=== PATIENT | male | born 1945 | race Caucasian/White ===

== ENCOUNTER → 2017-07-24 07:24 | Outpatient (CLI) | payer MEDICARE, OTHER, SELFPAY ==
--- NOTE | 2017-07-24 | DI.US.S_ITS ---
PROCEDURE: US ABD AORTA ANEURYSM SCREEN INDICATIONS: HISTORY OF SMOKING TECHNIQUE: Real time scanning was performed of the aorta and iliac arteries, with image documentation. COMPARISON: None. FINDINGS: Aorta: Proximal aortic diameter measures 2.2 cm. Mid-aorta measures 1.7 cm. Distal aortic diameter is 1.6 cm. Iliac arteries: Right common iliac artery measures 1.1 cm. Left common iliac artery measures 1.2 cm. IMPRESSION: No aortic or iliac artery aneurysm or ectasia. Dictated by: Coco Wang M.D. on 07/24/2017 at 11:34 Approved by: Coco Wang M.D. on 07/24/2017 at 11:35
--- NOTE | 2017-07-24 | DI.MRI.S_ITS ---
PROCEDURE: MR LUMBAR SPINE WO CON INDICATIONS: LUMBAR PAIN TECHNIQUE: Noncontrast sagittal T1 spin echo and T2 fast echo, sagittal STIR, axial T1 and T2 fast spin echo through the lumbar spine. In cases with scoliosis, additional coronal T2 fast spin echo may be performed. COMPARISON: None. FINDINGS: Image quality: Excellent. Alignment and Curvature: There is mild grade 1 anterolisthesis at the L4-L5 level. Bone Marrow: Marrow is of normal overall signal. No acute vertebral body compression fractures. Spinal Cord: Conus medullaris terminates at the L1 level. Visualized cord demonstrates normal signal and size. Paraspinous Soft Tissues: No paravertebral masses. T12-L1: Normal appearance. L1-L2: The disc height and disk signal are well-preserved. Mild generalized disc bulge is seen. There is mild left-sided and no significant right-sided neural foraminal narrowing seen. No center canal narrowing is seen. L2-L3: The disc height and disk signal are well-preserved. Mild generalized disc bulge is seen. Itms-fa-eudlxchh facet hypertrophy is seen. Mild bilateral neural foraminal narrowing is seen. There is minimal central canal narrowing. L3-L4: The disc height is well-preserved. Loss of disc signal is seen at this level. Moderate generalized disc bulge is seen. Moderate facet joint hypertrophy is seen. Mild fluid can be seen within the facet joints themselves. There is moderate to severe right-sided neural foraminal narrowing seen, with a mild degree of impingement upon the exiting right L3 nerve root. Moderate left-sided neural foraminal narrowing is seen. Moderate central canal narrowing is seen. L4-L5: Mild to moderate loss of disc height and disc signal are seen. There is a Schmorl's node at the inferior endplate of L4, without acute features. Mild grade 1 anterolisthesis is seen at this level, without definite associated pars defects. At least moderate disc bulge is seen. Moderate to prominent facet hypertrophy is seen. Moderate to severe bilateral neural foraminal narrowing is seen, left worse than right. There is a degree of impingement seen upon the exiting nerve roots. Severe central canal narrowing is seen at this level, as on series 6 image 11. L5-S1: Mild to moderate loss of disc height and disc signal are seen. A moderate disc bulge is seen. Qbri-af-qonbthgu facet hypertrophy is seen at this level. Moderate to severe bilateral neural foraminal narrowing is seen. There is a degree of impingement seen upon the exiting nerve roots. No significant central canal narrowing is seen. IMPRESSION: Multiple levels of lumbar spine degenerative change are seen, which are most prominent inferiorly. Moderate to severe bilateral neural foraminal narrowing is seen at the L4-L5 and L5-S1 levels. Dictated by: Rio Jacinto M.D. on 07/24/2017 at 9:35 Approved by: Rio Jacinto M.D. on 07/24/2017 at 9:54
== END ==
PROVIDERS: Family Provider Family Medicine; PCP Family Medicine; Visit Provider Family Medicine
DX: M51.36 Other intervertebral disc degeneration, lumbar region (principal); M99.73 Connective tissue and disc stenosis of intervertebral foramina of lumbar region
CPT/HCPCS: 72148; 76706

== ENCOUNTER 2017-08-20 07:21 | Outpatient (CLI) | payer MEDICARE, OTHER, SELFPAY ==
--- NOTE | 2017-08-20 07:22 | DI.RAD.S_ITS ---
PROCEDURE: PAIN L/S TRANSFORAMINAL INJECT INDICATIONS: 71-year-old male undergoing right L4-L5 nerve root injection. FINDINGS: Fluoroscopic spot filming was performed to verify placement of spinal needles at the right L4-L5 level(s), as labeled on the films. Appropriate location(s) of the needle tip(s) was confirmed by injection of iodinated contrast. IMPRESSION: Fluoroscopic guidance for right L4-L5 nerve root injection. Dictated by: Freddy Gibson M.D. on 08/20/2017 at 9:27 Approved by: Freddy Gibson M.D. on 08/20/2017 at 9:28
[2017-08-20 07:56] VITALS: BP 161/76; PULSE 65; RESP 18; TEMP 35.9; O2SAT 98
--- NOTE | 2017-08-20 08:29 | P.PCN_ITS ---
Procedures Date/Time Date of procedure: 08/20/17 Time of procedure: 08:28 General Procedure description: PREOP DIAGNOSIS 1. FORMAINAL STENOSIS WITH LE SYMPTOMS POST OP DIAGNOSIS 1. FORMAINAL STENOSIS WITH LE SYMPTOMS PROCEDURES 1. FLUOROSCOPICALLY GUIDED CONTRAST CONTROLLED TRANSFORAMINAL EPIDURAL STEROID INJECTION - RIGHT L4/5 TFESI PHYSICIAN: Hany Cam DO INDICATIONS: Nichelle is referred by Dr. Solomon for treatment of Foraminal Stenosis with Right LE Symptoms FINDINGS Foraminal Nerve Root Compression secondary to disc disease and facet hypertrophy DESCRIPTION OF PROCEDURE: Following denial of allergy and review of potential side effects and complications, including, but not necessarily limited to, infection, allergic reaction, local tissue breakdown, stroke, temporary or permanent nerve injury, paralysis, and possible , the patient indicated that the patient understood and agreed to proceed. An informed consent document was signed by the patient, witnessed by a nurse, and placed in the patient's chart. Additionally, other treatment options including medications, modalities, and physical therapy were reviewed with the patient. Per the patient request, IV conscious sedation was administered via 2mg of Versed to patient comfort. The patient's vital signs were monitored throughout the procedure by both the nurse and the physician without significant fluctuation. The patient remained conversant throughout the procedure. In the prone position following sterile prep and drape of the lumbar region, the Right L4/5 posterior neuroforamen was identified fluoroscopically. The skin was anesthetized via a 25-gauge 1.5-inch needle with 1% lidocaine solution. At this point, a 25-gauge 3.5-inch spinal needle was atraumatically introduced and advanced under fluoroscopic guidance through the posterior Right L4/5 neuroforamen to approximately the anterior aspect of the canal. Depth was confirmed on lateral view. Following negative aspiration, injection of approximately 1.5 cc of Isovue 200 under live fluoroscopy in the AP view confirmed excellent flow along the nerve root, into the epidural space without vascular or intrathecal uptake observed Radiological data, including multiple fluoroscopic views of the lumbosacral spine, reveal a spinal needle at the right L4/5 posterior neuroforamen. Subsequent views show flow of contrast material flowing superiorly and inferiorly along the nerve root confirming epidural flow. Subsequently, a test dose of 1.5 cc of 1% lidocaine solution was administered and patient was observed for two minutes for signs or symptoms of complications , including abdominal pain, shortness of breath, bilateral upper or lower extremity weakness, nausea and vomiting, prior to steroid injection. At this point, a total of 3 cc or 20 mg of dexamethasone and 80mg Depo Medrol was injected without incident. The patient was then transferred to the recovery area where they were observed for an appropriate time after the injection. The patient reported a VAS score of 7 prior to the procedure and a post-procedure VAS of 0. Total Fluoroscopy Time: 20.9 seconds Total Conscious Sedation Time: 24min POST OP INSTRUCTIONS The patient was provided a Pain Log to continue to record their response to the target-specific procedure prior to follow-up visit with their referring physician. Additionally, specific post-injection care instructions and a contact number to our office were provided if concerns arise regarding possible complications associated with the procedure are suspected. Hany Cam DO Complications: none
[2017-08-20 08:30] VITALS: BP 150/78; PULSE 65; RESP 12; O2SAT 96
[2017-08-20] MEDS: IOPAMIDOL 15 ML VIAL 3 ML INJ (08:30)
[2017-08-20] MEDS: BUPIVACAINE 0.25% (PF) 30 ML VIAL INJ (08:30)
[2017-08-20] MEDS: methylPREDNISolone acetate 80 MG/ML VIAL INJ (08:30)
[2017-08-20] MEDS: DEXAMETHASONE 10 MG/ML VIAL 20 MG INJ (08:30)
[2017-08-20] MEDS: MIDAZOLAM 5 MG/5 ML VIAL IV (08:30)
[2017-08-20 08:35] VITALS: BP 134/104; PULSE 62; RESP 9; O2SAT 97
[2017-08-20 08:40] VITALS: BP 113/57; PULSE 63; RESP 9; O2SAT 97
[2017-08-20 08:45] VITALS: BP 123/86; PULSE 60; RESP 12; O2SAT 97
[2017-08-20 08:53] VITALS: BP 146/68; PULSE 65; RESP 16; O2SAT 99
== END 2017-08-20 10:00 | disposition home or self-care (01) ==
PROVIDERS: Family Provider Family Medicine; PCP Family Medicine; Referring Provider Family Medicine; Visit Provider Physical Medicine & Rehabilitation
DX: M54.17 Radiculopathy, lumbosacral region (principal); M99.83 Other biomechanical lesions of lumbar region; M48.061 Spinal stenosis, lumbar region without neurogenic claudication
CPT/HCPCS: 64483; J1040; J1100; J2250

== ENCOUNTER 2018-09-01 06:38 | Day surgery (SDC) | payer MEDICARE, OTHER, SELFPAY ==
[2018-08-19 12:08] VITALS: BMI 28.3
[2018-09-01] VITALS (9 sets, daily range): BP systolic 128–169; BP diastolic 59–73; PULSE 52–72; RESP 12–18; TEMP 36.2–36.7; O2SAT 88–99; BMI 27.8
--- NOTE | 2018-09-01 | PATH_ITS ---
[facility] Accession Number: [id number] . 01 Material submitted: . hernia - UMBILICAL HERNIA SAC AND CONTENTS . 02 Diagnosis: Specimen Designated Umbilical Hernia Sac and Contents: Soft tissue consistent with umbilical hernia sac, chronically inflamed, with associated benign adipose tissue. MRV/09/03/2018 . 02 Electronically signed: . Rodrigue Cisneros MD, Pathologist NPI- [id number] . 01 Gross description: . Received in formalin, labeled umbilical hernia sac + contents, is a piece of thmoas-rey membranous and fatty rubbery tissue (4.0 x 2.4 x 0.8 cm). Professor [employer] tissue submitted in cassette A1. ([id number]) /MRV . 02 Pathologist provided ICD-10: K42.9 . 02 CPT . 523523 Performed at: 01 [facility] [address], [place], [place] [id number] MD Rommel Monreal MD Phone: [phone] Performed at: 02 [facility] [address] [place], [place] [id number] MD Pricilla Palencia MD Phone: [phone]
--- NOTE | 2018-09-01 07:10 | PM.PREOP ---
Pre-operative Note Interval Note History & Physical reviewed/Exam performed by Physician: Yes Changes to H&P: No
[2018-09-01] MEDS: LACTATED RINGERS 1,000 ML 100 ML IV (07:34)
[2018-09-01] MEDS: CEFAZOLIN 2 GM/100 ML FROZ.PIGGY IV (07:45)
--- NOTE | 2018-09-01 08:03 | SUR.OPER ---
Supine on padded OR bed, head on pillow, arms secured on padded arm boards at <90 degrees abduction, legs uncrossed, safety belt at thigh, tape over blanket over lower legs.
[2018-09-01] MEDS: BUPIVACAINE 0.25% W/ EPI 30 ML VIAL INJ (08:11)
--- NOTE | 2018-09-01 08:40 | PM.OP.1 ---
Operative Date/Time/Diagnoses Date of procedure: 09/01/18 Time of procedure: 08:40 Pre-op diagnosis: Umbilical Hernia Post-op diagnosis: same Procedure & Clinicians Procedure: Umbilical Hernia Repair Same procedure as scheduled: Yes Indications: 72yo M with long standing umbilical hernia but recently it has been more symptomatic. He would like it repaired. All risks, benefits, and alternatives are discussed and patient wishes to proceed. Surgeon: Awa Tabler Click Yes if Unassisted: Yes Anesthesia Type: General Operative Notes Findings: Small fat-containing umbilical hernia; defect 1.5cm Closure Type: primary Specimen(s): other (hernia sac and contents) Procedure in detail: The patient was taken to the operating room and placed on the operating table in supine position then induced to an acceptable level of anesthesia. The abdomen was prepped and draped in usual sterile fashion. Using a 15 blade scalpel, an approximately 3 cm incision was made just below the umbilicus. This was taken down through the subcutaneous tissue using electrocautery. The hernia sac was identified. It was opened and the peritoneal cavity was identified as well. The hernia was opened widely and then transected along its attachments to the fascia. The fascial defect measured approximately 1.5cm. The posterior aspect of the fascia was cleaned circumferentially. And all omental adhesions were taken down. The anterior aspect of the fascia was then cleaned in all directions.As the fascial defect was less than 2cm, it was closed primarily using 0-ethibond sutures in an interrupted fashion. Repair was satisfactory and without tension. The fascia was then closed over the mesh using 0-Ethibond sutures. Subcutaneous tissues were irrigated and dried. Hemostasis was obtained using electrocautery. The umbilical stalk was tacked down to the level of the fascia using a 3-0 Vicryl suture. The deep subcutaneous tissues were closed using 3-0 Vicryl in an interrupted fashion. The skin was then closed using 4-0 monocryl in a running fashion. The abdomen was cleaned and dried. Steri strips and a pressure dressing were placed over the incision. The patient was awakened and taken to the postanesthesia care unit in stable condition. All counts were correct at the end of the procedure. Complications: none Condition: stable Disposition: PACU
[2018-09-01] MEDS: OXYCODONE/ACETAMINOPHEN 5/325 TABLET 1 TAB PO ×2 (09:34→10:00)
== END 2018-09-01 10:39 | disposition home or self-care (01) ==
PROVIDERS: Family Provider Family Medicine; PCP Family Medicine; Visit Provider Surgery
PROC: (CPT 49587; principal; 2018-09-01 07:45)
DX: K42.9 Umbilical hernia without obstruction or gangrene (principal); E11.9 Type 2 diabetes mellitus without complications; G47.30 Sleep apnea, unspecified; Z87.891 Personal history of nicotine dependence; E66.3 Overweight; Z68.28 Body mass index [BMI] 28.0-28.9, adult
CPT/HCPCS: 49587; 88302; J0690; J1100; J2250; J2405; J2704; J3010

== ENCOUNTER → 2018-10-05 13:28 | Outpatient (CLI) | payer MEDICARE, OTHER, SELFPAY ==
--- NOTE | 2018-10-05 | PATH_ITS ---
Note [facility] Accession Number: [id number] TESTS RESULT FLAG UNITS REF RANGE LAB Clinician Provided Cytology Information No. of containers..01 ThinPrep Vial No. of containers..10 Previously Prepared Cytology Slide R INGUINAL LYMPH NOD DIAGNOSIS: 02 RIGHT INGUINAL LYMPH NODE NEGATIVE FOR MALIGNANT CELLS. PLEASE SEE COMMENT. THIS INTERPRETATION INCLUDES EVALUATION OF A CELL BLOCK. COMMENT The prepared slides contain abundant small lymphocytes and rare macrophages. The cell block and cytospin slide contain only rare lymphocytes. No high grade malignant cells are identified. FNA cytology is not a sensitive test for low grade lymphoma. Flow cytometry, sometimes with followup morphologic correlation via excisional biopsy, is the preferred test if there is clinical concern for lymphoma. Pathologist ICD10: 02 R59.9 01 SPLENOMEGALY/RIGHT INGUINAL LYMPH NODE ENLARGEMENT 02 Pricilla Palencia MD, Pathologist NPI- [id number] Eleazar Samuel, Engineering And Operations Director ([facility]) 01 30 CC, COLORLESS, CLEAR RECEIVED: 5 ALCOHOL FIXED AND 5 QUICK STAINED SLIDES. /VDU FLAG LEGEND: L-Low Normal,H-High Normal,LL-Alert Low,HH-Alert High <-Panic Low,>-Panic High,A-Abnormal,AA-Critical Abnormal Performed at: 01 =Z [facility] [address] [place] [address], [place] [address] Rommel Monreal MD, 02 [facility] [address] [place] [id number] Pricilla Palencia MD, Performed at: 01 [facility] [address], [place], [place] [id number] MD Rommel Monreal MD Phone: [phone]
--- NOTE | 2018-10-05 | DI.US.S_ITS ---
PROCEDURE: US BIOPSY LYMPH NODE INDICATIONS: RIGHT INGUINAL LYMPH NODE ENLARGEMENT TECHNIQUE: The indications, alternatives, benefits, risks, and complications of the procedure were explained to the patient. Written informed consent was obtained and placed in the chart. Real-time sonography was utilized to choose the site for percutaneous lymph node sampling. The skin was prepped and draped in the usual sterile fashion. 1% lidocaine was infiltrated down to the site of interest. A coaxial needle was then advanced into the site of interest under direct sonographic visualization. A biopsy apparatus was then utilized, and core biopsies were obtained. The needle was then withdrawn; a bandage was applied to the biopsy site. COMPARISON: None. FINDINGS: Biopsy site(s): Right inguinal lymph node Needle: [employer] biopsy needle set. Number of passes: 6 Medications: 1% lidocaine for local anaesthesia. Complications: None. IMPRESSION: Successful ultrasound-guided right inguinal lymph node biopsy, with pathology results pending. Dictated by: Andie Weinberg M.D. on 10/05/2018 at 15:02 Approved by: Andie Weinberg M.D. on 10/05/2018 at 15:02
== END ==
PROVIDERS: PCP Student in an Organized Health Care Education/Training Program; Visit Provider Internal Medicine Gastroenterology
DX: R59.0 Localized enlarged lymph nodes (principal); R16.1 Splenomegaly, not elsewhere classified
CPT/HCPCS: 38505; 76942

== ENCOUNTER 2018-10-19 12:13 | Day surgery (SDC) | payer MEDICARE, OTHER, SELFPAY ==
[2018-10-15 12:12] VITALS: BMI 28.3
[2018-10-19] VITALS (7 sets, daily range): BP systolic 127–145; BP diastolic 58–73; PULSE 61–75; RESP 11–20; TEMP 36.2–36.8; O2SAT 95–99; BMI 27.8
--- NOTE | 2018-10-19 | PATH_ITS ---
[facility] Accession Number: [id number] . 01 Material submitted: . PART A: lymph node - RIGHT GROIN LYMPH NODE PART B: lymph node - RIGHT GROIN LYMPH NODE . 01 Diagnosis: A and B) RIGHT GROIN LYMPH NODE, EXCISIONAL BIOPSIES: . 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 01 Comment: The neoplastic B-cells in this case have uniform nuclear expression of cyclin D1, diagnostic of mantle cell lymphoma (MCL). The Qo-60-uzjxbjg proliferative rate among the neoplastic cells varies significantly, with large regions having a proliferative rate less than 5%, and multiple other foci having a proliferative rate up to 40%. A Xn-23-llbropy proliferative rate above 30% is considered an adverse prognostic factor in MCL. Note that the mantle cell lymphoma in this case is predominantly negative for CD5 expression, which occurs in about 10-15% of all MCL cases and currently does not have any known prognostic implication. This case also exhibits uniform coexpression of CD10, which has been well documented in a subset of mantle cell lymphomas, often in MCLs with a blastoid or pleomorphic morphology. This particular case of MCL is interesting for its uniform coexpression of CD10 and intermediate to large cell size; however, the morphology isn't particularly blastoid or pleomorphic, and as mentioned earlier, large regions of the lymphoma exhibit a distinctly low Qi-11-umsxkgu proliferative rate. The neoplastic cells are also negative for p53 overexpression by immunohistochemistry, which suggests this lymphoma does not harbor a TP53 mutation or deletion. In regard to treatment decisions for this patient, however, the presence of multifocal regions with a Lf-05-jyszpoe proliferative rate of 40% should be taken into consideration. . FLOW CYTOMETRY: Flow cytometric evaluation performed on a fresh portion of the right groin lymph node identified an abnormal kappa-restricted B-cell population of predominantly intermediate to large cell size, with expression of intermediate CD20, CD19, and CD10; intermediate-high CD22; high-level CD38; and low FMC7; without definitive coexpression of CD5, and without expression of CD11c, CD23, or CD103 ([phone]). . REFERENCE: Kaia SH, et al. WHO Classification of Tumours of Haematopoietic and Lymphoid Tissues. Revised 4th Ed., [employer], [place], 2017, pp [phone]. . 01 Electronically signed: . Yarely Dumas MD, Pathologist NPI- [id number] . 01 Gross description: . (A) Received in B Plus Fix, labeled right groin lymph node, is a piece of lymph node (1.4 x 0.8 x 0.8 cm). Serially sectioned and entirely submitted in cassettes A1-A2. (B) Received in formalin, labeled right groin lymph node, is a lymph node in multiple pieces (3.4 x 2.4 x 1.3 cm in aggregate). Serially sectioned and entirely submitted in cassettes B1-B7. . Note: Per the requisition, this is a split sample with wet and dry slides submitted and tissue sent to flow cytometry for analysis. ([id number]) /MRV . 01 Microscopic: . H/E-stained sections of A1-A2 and B1-B7 reveal cross sections of an excisional biopsy of a moderately-enlarged lymph node with essentially complete architectural effacement by an atypical lymphoid infiltrate with a diffuse histologic pattern. In a few foci, vague nodularity is noted; however, this is favored to reflect the underlying nodularity of the lymph node itself. No distinct residual primary or secondary follicles are identified. The atypical lymphoid population appears predominantly intermediate to large in size, with moderately convoluted nuclei, variably-condensed chromatin and occasional nucleoli. The atypical cells exhibit a vague molding pattern with adjacent cells. The atypical infiltrate extends through the mando capsule, and mildly into the surrounding adipose tissue. Mitotic figures are easily identified in some areas and at least one focus of incipient necrosis is present. In scattered regions, there is increased stromal hyalinization and thickened vessel arnold. Small calcifications are also seen in some areas of the stromal hyalinization. Trichrome and Congo red special stains indicate the stromal hyalinization represents collagen, and not deposition of amyloid. . Select immunohistochemical studies* were performed on block B7 for further evaluation of the atypical infiltrate, with accompanying positive and negative controls. The vast majority of lymphocytes are abnormal B-cells with uniform coexpression of Pax5, CD10, bcl-2, CD43, and nuclear cyclin D1, and focal weak expression of CD5. A small subset of CD3+/CD5+ T-cells is present in the background. The abnormal B-cell population does not exhibit convincing coexpression of bcl-6. The Bs-56-pphfssi proliferative rate among the abnormal B-cells varies significantly, with large regions having a Lg-54-wnbnmmu proliferative rate less than 5%, and multiple other foci having a Dv-84-retalrz proliferative rate up to 40%. The abnormal cells are negative for p53 overexpression by immunohistochemistry. An immunostain for CD21 highlights many expanded [facility] meshworks in the background of the tissue. . * Technical note: These tests and their performance characteristics have been determined by [facility]. They have not been cleared or approved by the U.S. Food and Drug Administration. The FDA has determined that such clearance or approval is not necessary. These tests are used for clinical purposes, and should not be regarded as investigational or for research. . 01 Pathologist provided ICD-10: C83.15 . 01 CPT . 895272, 111689, 449969, R08872, N02424 Performed at: 01 [facility] [address] [place] [address] [address], [place], [place] [id number] MD Rommel Monreal MD Phone: [phone]
[2018-10-19] MEDS: LACTATED RINGERS 1,000 ML 42 ML IV ×2 (13:30→15:33)
--- NOTE | 2018-10-19 14:43 | PM.PREOP ---
Pre-operative Note Interval Note History & Physical reviewed/Exam performed by Physician: Yes Changes to H&P: No H&P completed within 30 days and has changed as indicated here:: See recent office visit for history and physical
[2018-10-19] MEDS: CEFAZOLIN 2 GM/100 ML FROZ.PIGGY IV (14:52)
--- NOTE | 2018-10-19 15:27 | SUR.OPER ---
Supine on padded OR bed, head on pillow, arms secured on padded arm boards at <90 degrees abduction, legs uncrossed, safety belt at thigh, tape over blanket over lower legs.
[2018-10-19] MEDS: BUPIVACAINE 0.5% (PF) VIAL 30 ML INJ (15:34)
--- NOTE | 2018-10-19 16:22 | P.OP_ITS ---
Operative Date/Time/Diagnoses Date of procedure: 10/19/18 Time of procedure: 16:19 Pre-op diagnosis: Diffuse lymphadenopathy with enlarged spleen suggestive of lymphoma Post-op diagnosis: same Procedure & Clinicians Procedure: Lymph node biopsy right groin Same procedure as scheduled: Yes Indications: Diagnostic Surgeon: Errol Cook Click Yes if Unassisted: Yes Anesthesia Type: General Operative Notes Findings: Enlarged matted nodes right groin Closure Type: primary Specimen(s): other (Node in multiple materials and slides.) Prosthetic devices, grafts, tissues, transplants, or devices: None Estimated Blood Loss (mL): 5 Blood products transfused: none Procedure in detail: Patient was placed supine on the operating room table and underwent general LMA anesthesia. He was prepped and draped in the usual fashion overlying the lymphadenopathy in the right groin. Local anesthetic was infiltrated and incision made directly over palpable nodes. Dissection was carried down the level the nodes. All tissues going to and from the lymph node that I chose to remove were tied or sutured with 3 0 Vicryl. The node was released and wet and dry preps were made with slides. Flow cytometry material w as prepared in formalin as well. Closure was a 3 0 Vicryl in the fat and deeper tissues. The skin was closed with interrupted 3 0 nylon vertical mattress suture. Dressing was applied the patient was awakened taken recovery room good condition. Complications: none Condition: stable Disposition: PACU
[2018-10-19] MEDS: KETOROLAC 30 MG/ML VIAL IV (16:43)
== END 2018-10-19 17:16 | disposition home or self-care (01) ==
PROVIDERS: PCP Student in an Organized Health Care Education/Training Program; Visit Provider Specialist
PROC: (CPT 38500; principal; 2018-10-19 13:30)
DX: C83.15 Mantle cell lymphoma, lymph nodes of inguinal region and lower limb (principal); R16.1 Splenomegaly, not elsewhere classified; E11.9 Type 2 diabetes mellitus without complications; I10 Essential (primary) hypertension; G47.33 Obstructive sleep apnea (adult) (pediatric); K21.9 Gastro-esophageal reflux disease without esophagitis; E78.5 Hyperlipidemia, unspecified; Z79.4 Long term (current) use of insulin
CPT/HCPCS: 38500; 88307; 88313; 88341; 88342; J0690; J1885; J2405; J2704; J3010

== ENCOUNTER → 2019-01-28 17:53 | Outpatient (CLI) | payer MEDICARE, OTHER, SELFPAY ==
--- NOTE | 2019-01-28 18:07 | DI.RAD.S_ITS ---
PROCEDURE: XR ELBOW RT MIN 3V INDICATIONS: RIGHT ELBOW ABCESS TECHNIQUE: 3 views of the elbow were acquired. COMPARISON: None. FINDINGS: Bones: No fractures or dislocations. No suspicious bony lesions. Prominent enthesophyte formation in proximal olecranon in near triceps tendon insertion is seen. Soft tissues: Dorsal soft tissue swelling over olecranon is seen. No elbow joint effusion. Tiny radiodensity adjacent to anterior and radial aspect of lateral humeral condyle is seen, may represent tiny foreign body. IMPRESSION: Soft tissue swelling over dorsal aspect of olecranon, which could indicate olecranon bursitis. No fracture or dislocation. No bony erosive changes. Possible foreign body in anterior lateral elbow soft tissue. Dictated by: Cody Troy M.D. on 01/29/2019 at 9:43 Approved by: Cody Troy M.D. on 01/29/2019 at 9:54
[2019-01-28 20:03] LABS: Prostate Specific Antigen 1.85 ng/mL (0.10-4.00)
[2019-01-28 20:04] LABS: Add Manual Diff / Slide Review NO; Basophils Percent Auto 0.1 % (0-2); Eosinophils Percent Auto 1.6 % (2-4); Hematocrit 36.4 % (41-53); Hemoglobin 12.7 g/dL (13.5-17.5); Lymphocytes Absolute Auto 100 /uL (1100-4500); Lymphocytes Percent Auto 1.1 % (25-40); Mean Corpuscular HGB Conc 34.9 % (30-36); Mean Corpuscular Hemoglobin 33.1 PG (26-34); Mean Corpuscular Volume 94.8 fL (80-100); Monocytes Absolute Auto 400 /uL (0-900); Monocytes Percent Auto 4.9 % (3-14); Neutrophils Absolute Auto 8100 /uL (1500-7000); Neutrophils Percent Auto 92.3 % (50-75); Platelet Count 184 X10^3/uL (150-400); Red Blood Cell Count 3.84 X10^6/uL (4.5-5.9); Red Cell Distribution Width 16.6 % (11.6-14.8); White Blood Cell Count 8.8 X10^3/uL (4.5-11.0)
[2019-01-28 20:05] LABS: Basophils Absolute Auto 0 /uL (0-100); Eosinophils Absolute Auto 100 /uL (0-450)
== END ==
PROVIDERS: PCP Student in an Organized Health Care Education/Training Program; Visit Provider Student in an Organized Health Care Education/Training Program
DX: M71.021 Abscess of bursa, right elbow (principal); R35.0 Frequency of micturition; M79.89 Other specified soft tissue disorders
CPT/HCPCS: 73080; 84153; 85025; 87070; 87075; 87205

== ENCOUNTER 2019-03-01 13:06 | Emergency (ER) | payer MEDICARE, OTHER, SELFPAY ==
[2019-03-01 13:15] VITALS: BP 103/87; PULSE 84; RESP 14; TEMP 36.7; O2SAT 99; BMI 26.5
[2019-03-01 13:20] VITALS: PULSE 80
--- NOTE | 2019-03-01 13:46 | DI.RAD.S_ITS ---
PROCEDURE: XR ELBOW LT MIN 3V INDICATIONS: swelling, ? bursitis TECHNIQUE: 3 views of the elbow were acquired. COMPARISON: None. FINDINGS: Bones: No fractures or dislocations. No suspicious bony lesions. There are mild degenerative changes of the left elbow joint. There is a calcified enthesophyte along the left elbow posteriorly, adjacent the olecranon. Soft tissues: There is posterior left elbow soft tissue edema overlying the olecranon posteriorly. IMPRESSION: Posterior left elbow soft tissue edema overlying the left olecranon. No convincing acute fracture or dislocation of the left elbow identified radiographically. Consider followup radiographs in 7-10 days versus MRI if there is continued clinical concern. Dictated by: Mark Mendoza M.D. on 03/01/2019 at 14:12 Approved by: Mark Mendoza M.D. on 03/01/2019 at 14:16
[2019-03-01 14:00] VITALS: BP 105/65; PULSE 74; RESP 96
[2019-03-01 15:04] VITALS: BP 136/71; PULSE 71; RESP 22; O2SAT 97
--- NOTE | 2019-03-01 16:05 | ED.EXTPRO ---
HPI - Extremity Problem <Nesha MorseSAM-BC - Last Filed: 03/01/19 16:12> General Chief complaint: Extremity Problem,Nontraumatic Stated complaint: swollen left elbow Time Seen by Provider: 03/01/19 13:26 Source: patient Mode of arrival: Ambulatory Limitations: no limitations History of Present Illness HPI Narrative: The patient is a 73 year old male former smoker with history lymphoma who presents with a chief complaint of a swollen left elbow. He states he had something similar to his right elbow in the last month, but it was red and draining pus. He states that he received multiple antibiotics as well as a drainage of this elbow. He denies any fevers nausea vomiting diarrhea. He states he has full range of motion of his elbow. He states the swelling started yesterday. He was concerned about redness at home, but states that went away. Related Data Home Medications Medication Instructions Recorded Confirmed losartan-hydrochlorothiazide 1 tab PO DAILY #0 04/04/17 03/01/19 [Hyzaar] rosuvastatin [Crestor] 5 mg PO DAILY #0 04/04/17 03/01/19 coenzyme Q10 100 mg capsule 100 mg PO DAILY 09/19/17 12/14/18 insulin glargine 100 unit/mL 5 unit SUBCUT DAILY #0 ml 07/09/18 12/14/18 subcutaneous solution omega 9-ibk-bhl-fish oil 1,000 mg 1 cap PO DAILY cap 07/09/18 12/14/18 (120 mg-180 mg) capsule gabapentin 300 - 600 mg PO BEDTIME 08/25/18 03/01/19 ketoconazole 1 applic TOPICAL DAILY 08/25/18 12/14/18 venlafaxine 37.5 mg 75 mg PO DAILY 10/13/18 12/14/18 capsule,extended release 24 hr Resmed Airsense 10 CPAP #1 ea 12/14/18 03/01/19 acyclovir 400 mg PO BID 03/01/19 03/01/19 glipizide 10 mg PO BID 03/01/19 03/01/19 metformin 1,000 mg PO BID 03/01/19 03/01/19 Previous Rx's Medication Instructions Recorded ibuprofen 600 mg PO Q6H PRN #20 tab 10/19/18 ketorolac 10 mg PO TID PRN #15 tab 03/01/19 Allergies Allergy/AdvReac Type Severity Reaction Status Date / Time codeine [CODEINE] Allergy Severe PASSES OUT Verified 12/14/18 11:35 hydrocodone AdvReac Severe bradycardia, Verified 12/14/18 11:35 unable to waken oxycodone AdvReac Severe Bradycardia, Verified 12/14/18 11:35 unable to waken morphine AdvReac Unknown went into Verified 12/14/18 11:35 shock Review of Systems <ANDREW Butler - Last Filed: 03/01/19 16:12> Review of Systems Narrative: GENERAL: Denies chills, fatigue, malaise, fever, sweats. HEENT: Denies sinus pain, ear pain, sore throat, difficulty swallowing, dizziness. RESPIRATORY: Denies dyspnea, cough, wheezing, hemoptysis, sputum. CARDIOVASCULAR: Denies chest pain, palpitations, orthopnea, edema, GASTROINTESTINAL: Denies nausea, vomiting, abdominal pain, diarrhea, constipation, melena. : Denies dysuria, frequency, incontinence, hematuria, urinary retention. MUSCULOSKELETAL: See HPI SKIN: See HPI NEUROLOGIC: Denies weakness, headache, numbness, change in speech, confusion, seizures, incoordination. PSYCHIATRIC: No concerning psychosocial issues. 12 point review of systems is negative except for those stated above Patient History <ANDREW Butler - Last Filed: 03/01/19 16:12> Medical History Arthritis (Acute) Bilateral ankle pain (Acute) Diabetes (Acute) Diverticulosis (Acute) GERD (gastroesophageal reflux disease) (Acute) High blood sugar (Acute) HLD (hyperlipidemia) (Acute) HTN (hypertension) (Acute) Low blood sugar (Acute) Neuropathy (Acute) Peripheral neuropathy (Acute) PTSD (post-traumatic stress disorder) (Acute) Surgical History History of ankle surgery (Acute ~07/1985) Hx of umbilical hernia repair (Acute 09/01/18) Social History household members: spouse Smoking Status: Former smoker alcohol intake: current additional social history: Patient has disability status from the regarding his sleep apnea. Smoking Status: Former smoker alcohol intake frequency: 0-2 drinks per day Substance Use Type: does not use Exam <ANDREW Butler - Last Filed: 03/01/19 16:12> Narrative Exam Narrative: GENERAL: This is a well-nourished, well-developed patient, in no acute distress HEAD: Atraumatic. Normocephalic. No temporal or scalp tenderness. EYES: Pupils equal round and reactive. Extraocular motions intact. No scleral icterus. No injection or drainage. ENT: Nose without bleeding, purulent drainage or septal hematoma. Throat without erythema, tonsillar hypertrophy or exudate. Uvula midline. Airway patent. NECK: Trachea midline. No JVD or lymphadenopathy. Supple, nontender, no meningeal signs. CARDIOVASCULAR: Regular rate and rhythm RESPIRATORY: No cough. No increased respiratory effort. No accessory muscle use. EXTREMITIES: Soft tissue swelling noted on olecranon of left elbow. No overlying edema. No drainage. Full range of motion noted left elbow. Positive radial pulse. BACK: Nontender without deformity or crepitance. No flank tenderness. NEURO: AOx3. SKIN: No rash, erythema ecchymosis laceration or abrasion noted over left elbow Initial Vital Signs Initial Vital Signs: Vital Signs Temperature 98.0 F 03/01/19 13:15 Pulse Rate 84 03/01/19 13:15 Respiratory Rate 14 03/01/19 13:15 Blood Pressure 103/87 03/01/19 13:15 Pulse Oximetry 99 03/01/19 13:15 <Lety Velazquez DO - Last Filed: 03/03/19 07:11> Initial Vital Signs Initial Vital Signs: Vital Signs Temperature 98.0 F 03/01/19 13:15 Pulse Rate 84 03/01/19 13:15 Respiratory Rate 14 03/01/19 13:15 Blood Pressure 103/87 03/01/19 13:15 Pulse Oximetry 99 03/01/19 13:15 Course <ANDREW Butler - Last Filed: 03/01/19 16:12> Orders Ordered: ED Orders 03/01/19 13:46 XR elbow LT min 3V Stat Vital Signs Vital signs: Vital Signs - 8 hr 03/01/19 13:15 03/01/19 13:20 03/01/19 14:00 Temperature 98.0 F Pulse Rate 84 74 Pulse Rate [Left Radial] 80 Respiratory Rate 14 96 H Blood Pressure 103/87 Blood Pressure [Right Arm] 105/65 Pulse Oximetry 99 03/01/19 15:04 Temperature Pulse Rate 71 Pulse Rate [Left Radial] Respiratory Rate 22 Blood Pressure Blood Pressure [Right Arm] 136/71 Pulse Oximetry 97 <Lety Velazquez DO - Last Filed: 03/03/19 07:11> Orders Ordered: ED Orders 03/01/19 13:46 XR elbow LT min 3V Stat Vital Signs Vital signs: Vital Signs - 8 hr 03/01/19 13:15 03/01/19 13:20 03/01/19 14:00 Temperature 98.0 F Pulse Rate 84 74 Pulse Rate [Left Radial] 80 Respiratory Rate 14 96 H Blood Pressure 103/87 Blood Pressure [Right Arm] 105/65 Pulse Oximetry 99 03/01/19 15:04 Temperature Pulse Rate 71 Pulse Rate [Left Radial] Respiratory Rate 22 Blood Pressure Blood Pressure [Right Arm] 136/71 Pulse Oximetry 97 MDM - Extremity (Nontraumatic) <ANDREW Butler - Last Filed: 03/01/19 16:12> Imaging Data elbow xray : Radiologist's Impression: RosarioandreiafrankNichelle Alexa 73 M [address] [place] [address] XRay Report Signed Patient: Nichelle Zambrano PMR#: [id number] : 5Acct:[id number] Age/Sex: 73 / MDate of Service: 03/01/19 Loc: ED Accession Number: [id number] Procedure: XR elbow LT min 3V Ordering Provider: Nesha Morse PROCEDURE: XR ELBOW LT MIN 3V INDICATIONS: swelling, ? bursitis TECHNIQUE: 3 views of the elbow were acquired. COMPARISON: None. FINDINGS: Bones: No fractures or dislocations. No suspicious bony lesions. There are mild degenerative changes of the left elbow joint. There is a calcified enthesophyte along the left elbow posteriorly, adjacent the olecranon. Soft tissues: There is posterior left elbow soft tissue edema overlying the olecranon posteriorly. IMPRESSION: Posterior left elbow soft tissue edema overlying the left olecranon. No convincing acute fracture or dislocation of the left elbow identified radiographically. Consider followup radiographs in 7-10 days versus MRI if there is continued clinical concern. Dictated by: Mark Mendoza M.D. on 03/01/2019 at 14:12 Approved by: Mark Mendoza M.D. on 03/01/2019 at 14:16 [facility] Narrative Medical decision making narrative: The patient is a 73-year-old male with history of lymphoma who presents with a chief complaint of swelling in his left elbow. He states he noticed this yesterday. He denies any fevers nausea vomiting or diarrhea. He has full range of motion. He is afebrile and has no signs of systemic illness the emergency department. He has no signs of infection at this point time, no overlying erythema is noted. No drainage is noted. I discussed case with Dr Velazquez given the patient's history and comorbidities, elected to do a trial of ice and anti-inflammatories with strict follow-up and strict return precautions. There is no indication for drainage at this point time. Discussed at length importance of following up with primary care provider in the next few days, discussed return precautions the emergency department including fevers, decreased range of motion, signs of infection etc.. Patient has no questions or concerns upon discharge and states understanding of return precautions as well as follow-up care. Discharge Plan Departure Patient Disposition: Home Clinical Impression: Bursitis Qualifiers: Bursitis location: elbow Elbow bursitis location: olecranon bursitis Laterality: left Qualified Code(s): M70.22 - Olecranon bursitis, left elbow Discharge Date/Time: 03/01/19 15:36 Instructions: Bursitis (Alternative Therapy), DI for Bursitis, How To Perform RICE (Rest, Ice, Compress, Elevate), DI for Elbow Bursitis Activity Restrictions/Additional Instructions: I sent a prescription of Toradol to [facility] pharmacy I have given you a prescription of Toradol. This is an NSAID. Do not combine it with other NSAIDs such as Aleve or ibuprofen. I suggest taking it with some food, as it can irritate your stomach. Please use aggressive ice. Please monitor for signs of worsening or infection such as fever, decreased range of motion, focal redness or drainage Please follow-up with primary care provider in the next few days. Please come back to emergency department for any acute Prescriptions: New ketorolac 10 mg tablet 10 mg PO TID PRN (Reason: pain) Qty: 15 RF: 0 No Action losartan-hydrochlorothiazide [Hyzaar] 100 MG/25 MG tablet 1 tab PO DAILY Qty: 0 RF: 0 rosuvastatin [Crestor] 5 MG tablet 5 mg PO DAILY Qty: 0 RF: 0 Lantus U-100 Insulin 100 unit/mL solution 5 unit subcut DAILY Qty: 0 RF: 0 venlafaxine [Effexor XR] 37.5 mg capsule,extended release 24hr 75 mg PO DAILY RF: 0 ketoconazole 2 % Cream 1 applic TOPICAL DAILY RF: 0 gabapentin 300 mg capsule 300 - 600 mg PO BEDTIME RF: 0 metformin 500 mg tablet 1,000 mg PO BID RF: 0 glipizide 10 mg tablet extended release 24hr 10 mg PO BID RF: 0 acyclovir 400 mg tablet 400 mg PO BID RF: 0 ibuprofen 600 mg tablet 600 mg PO Q6H PRN (Reason: pain) Qty: 20 RF: 0 coenzyme Q10 [CoQ-10] 100 mg capsule 100 mg PO DAILY RF: 0 omega 5-nal-ues-fish oil [Fish Oil] 1,000 mg (120 mg-180 mg) capsule 1 cap PO DAILY RF: 0 (DME) Resmed Airsense 10 CPAP Qty: 1 RF: 0 Referrals: Marie Barrientos MD [Primary Care Provider] -
== END 2019-03-01 15:36 | disposition home or self-care (01) ==
PROVIDERS: Emergency Provider Nurse Practitioner Family; PCP Student in an Organized Health Care Education/Training Program
DX: M70.22 Olecranon bursitis, left elbow (principal)
CPT/HCPCS: 73080; 99282; 99283

== ENCOUNTER → 2019-04-23 09:27 | Outpatient (CLI) | payer MEDICARE, OTHER, SELFPAY ==
--- NOTE | 2019-04-23 | DI.US.S_ITS ---
PROCEDURE: US EXTREMITY NONVASC UPPER LT INDICATIONS: LEFT ELBOW CELLULITIS, MANTLE CELL LYMPHOMA TECHNIQUE: Real-time scanning was performed of the left elbow, with image documentation. COMPARISON: [facility], CR, XR ELBOW LT MIN 3V, 03/01/2019, 13:50. FINDINGS: Posterior bone spur is noted as is in a prior chest x-ray. No masses or fluid collections are visualized IMPRESSION: No masses or fluid collections visualized within the posterior left elbow. Dictated by: Jean Marie Herrera [facility] Interpreted: Cody Troy MD on 04/23/2019 at 15:00 Approved by: Cody Troy M.D. on 04/23/2019 at 16:29
== END ==
PROVIDERS: PCP Student in an Organized Health Care Education/Training Program; Referring Provider Student in an Organized Health Care Education/Training Program; Visit Provider Student in an Organized Health Care Education/Training Program
DX: C83.10 Mantle cell lymphoma, unspecified site (principal); L03.113 Cellulitis of right upper limb
CPT/HCPCS: 76882

== ENCOUNTER → 2019-11-30 09:02 | Outpatient (CLI) | payer MEDICARE, OTHER, SELFPAY | PROVIDERS: PCP Student in an Organized Health Care Education/Training Program; Referring Provider Specialist; Visit Provider Specialist | DX: N40.0 Benign prostatic hyperplasia without lower urinary tract symptoms (principal) | CPT/HCPCS: 36415; 84153 ==

== ENCOUNTER → 2020-07-24 11:15 | Outpatient (CLI) | payer MEDICARE, OTHER, SELFPAY ==
[2020-07-24 12:12] LABS: Hematocrit 41.8 % (41-53); Hemoglobin 14.7 g/dL (13.5-17.5); Mean Corpuscular HGB Conc 35.3 % (30-36); Mean Corpuscular Hemoglobin 34.8 PG (26-34); Mean Corpuscular Volume 98.5 fL (80-100); Platelet Count 146 X10^3/uL (150-400); Red Blood Cell Count 4.24 X10^6/uL (4.5-5.9); Red Cell Distribution Width 15.2 % (11.6-14.8)
[2020-07-24 12:14] LABS: Add Manual Diff / Slide Review YES; White Blood Cell Count 1.9 X10^3/uL (4.5-11.0)
[2020-07-24 12:49] LABS: Neutrophils Absolute Manual 1254 /uL (3000-5900); RBC Morphology Normal Morphology; Total Cells Counted 50
== END ==
PROVIDERS: PCP Student in an Organized Health Care Education/Training Program; Referring Provider Student in an Organized Health Care Education/Training Program; Visit Provider Student in an Organized Health Care Education/Training Program
DX: D64.9 Anemia, unspecified (principal)
CPT/HCPCS: 36415; 85007; 85025

== ENCOUNTER → 2020-09-26 08:34 | Outpatient (CLI) | payer MEDICARE, OTHER, SELFPAY ==
[2020-09-26 11:40] LABS: Prostate Specific Antigen 1.25 ng/mL (0.10-4.00)
== END ==
PROVIDERS: PCP Student in an Organized Health Care Education/Training Program; Referring Provider Specialist; Visit Provider Specialist
DX: N13.8 Other obstructive and reflux uropathy (principal); N40.1 Benign prostatic hyperplasia with lower urinary tract symptoms
CPT/HCPCS: 36415; 84153

== ENCOUNTER → 2024-10-15 14:30 | Outpatient (CLI) | payer MEDICARE, OTHER, SELFPAY ==
--- NOTE | 2024-10-15 14:34 | DI.RAD.S_ITS ---
PROCEDURE: XR LUMBAR SPINE 2-3V INDICATIONS: LUMBOSACRAL RADICULOPATHY TECHNIQUE: 3 views of the lumbar spine were acquired. COMPARISON: None. FINDINGS: Bones: 5 [id number]-[id number] vertebrae are present. Minimal dextroscoliosis has its apex about the L2 vertebral body. Anterolisthesis of L4 on L5 measures 1.1 cm. There is otherwise normal bony alignment. Moderate multilevel disc height loss with adjacent endplate sclerosis and anterior osteophytosis. No vertebral body compression fractures. No suspicious bony lesions. Soft tissues: Overlying bowel gas pattern is normal. No suspicious soft tissue calcifications. Atherosclerotic vascular calcifications. IMPRESSION: Degenerative change including anterolisthesis of L4 on L5 without evidence of acute osseous abnormality. Dictated by: Logan Baker M.D. on 10/15/2024 at 16:32 Approved by: Logan Baker M.D. on 10/15/2024 at 16:33
== END ==
PROVIDERS: PCP Family Medicine; Referring Provider Family Medicine; Visit Provider Family Medicine
DX: M54.17 Radiculopathy, lumbosacral region (principal); M43.16 Spondylolisthesis, lumbar region; I70.90 Unspecified atherosclerosis
CPT/HCPCS: 72100